=== PATIENT | male | born 1980 | race Hispanic/Latino ===

== ENCOUNTER 2016-10-27 10:22 | Emergency (ER) | payer SELFPAY ==
--- NOTE | 2016-10-27 10:53 | ERRECORD ---
[facility] EMERGENCY RECORD HPI TOOTHACHE (10:40 BPIC) CHIEF COMPLAINT: Patient presents for evaluation of toothache and swelling to lower right jaw. HISTORIAN: History provided by patient. LOCATION: Symptoms are localized, most severe to lower right. QUALITY: Pain is dull in nature. SEVERITY: Maximum severity of symptoms severe, Currently symptoms are severe. TIME COURSE: Gradual onset of symptoms, Sx have been much worse in the past few days. ASSOCIATED WITH: Associated with facial pain, No associated facial swelling, No associated fever, No associated trauma. EXACERBATED BY: Patient's condition exacerbated by chewing. RELIEVED BY: Patient's condition relieved by nothing. ROS (10:40 BPIC) CONSTITUTIONAL: Negative constitutional review of systems. EYES: Negative eye review of systems. ENT: Negative ears, nose, throat review of systems. CARDIOVASCULAR: Negative cardiovascular review of systems. RESPIRATORY: Negative respiratory review of systems. GI: Negative gastrointestinal review of systems. MUSCULOSKELETAL: Negative musculoskeletal review of systems. SKIN: Negative skin review of systems. PSYCHIATRIC: Negative psychiatric review of systems. NOTES: All other ROS is negative except as listed in HPI. PAST MEDICAL HISTORY MEDICAL HISTORY: Flu vaccine up to date, Tetanus immunization up to date, Dental HX, multiple broken teeth and abcesses. (10:28 MSPE) MALE SURGICAL HISTORY: Patient has no surgical history. (10:28 MSPE) PSYCHIATRIC HISTORY: No previous psychiatric history. (10:28 MSPE) SOCIAL HISTORY: Patient denies alcohol use, Patient denies drug use, Patient currently uses tobacco, smokes cigarettes, sts occasional cigarette. (10:28 MSPE) NOTES: I have reviewed and agree with the PMH/PSxH/FamHx/SocHx obtained by the nurse. (10:40 BPIC) KNOWN ALLERGIES NKDA (Unconfirmed) No Known Drug Allergies CURRENT MEDICATIONS (10:26 MSPE) None VITAL SIGNS (10:25 MSPE) &a-1R&a+25V*p+0X*b4832J*c202B*c15G*c2P*p-0X&a-25V&a+1R Name: Joe Flores : 1980 M35 MedRec: [id number] AcctNum: [id number] Prepared: TueOct 27, 2016 21:22 by Interface Page 1 of 2 pMD [facility] EMERGENCY RECORD VITAL SIGNS: BP: 146/86, Pulse: 85, Resp: 18, Temp: 97.3 (Oral), Pain: 10, O2 sat: 100 on Room Air, Time: 10/27/2016 10:25. PHYSICAL EXAM (10:40 BPIC) CONSTITUTIONAL: Vital signs reviewed, Patient afebrile, Pulse normal, Blood pressure normal, Respiratory rate normal, Patient appears non toxic, Patient appears pain free, Patient alert and oriented to person, place and time. HEAD: Head exam included findings of head atraumatic, normocephalic. EYES: Eye exam included findings of eyelids normal to inspection, Pupils equally round and reactive to light, Extraocular muscles intact. ENT: ENT exam normal, Nose exam normal, Pharynx exam normal, Uvula exam normal, Teeth with, dental caries, abscess. NECK: Neck exam included findings of normal range of motion, Trachea midline. RESPIRATORY CHEST: Respiratory exam included findings of no respiratory distress, Breath sounds clear, Chest exam included findings of chest movement symmetrical, Chest expansion equal. CARDIOVASCULAR: Cardiovascular exam included findings of heart rate regular rate and rhythm, Heart sounds normal. NEURO: Neuro exam findings include patient oriented to person, place and time, Speech normal. PSYCHIATRIC: Psychiatric exam included findings of patient oriented to person place and time, Normal affect. DOCTOR NOTES (10:40 BPIC) TEXT: Pt with dental dental abscess. I discussed the patient with Dr. Cardona who would like for the patient to be sent directly to his clinic. PROBLEM LIST No recorded problems DIAGNOSIS (10:40 BPIC) FINAL: PRIMARY: dental abscess. PRESCRIPTION No recorded prescriptions DISPOSITION PATIENT: Disposition Type: Discharge, Disposition: *Discharge Home, Condition: Good. (10:40 BPIC) Patient left the department. (10:46 MSPE) Jacobs: BPIC=MD Carline, Derrek MSPE=SMITH Goddard, Maria Elena &a-1R&a+25V*p+0X*q6036G*c202B*c15G*c2P*p-0X&a-25V&a+1R Name: Joe Flores : 1980 M35 MedRec: [id number] AcctNum: [id number] Prepared: TueOct 27, 2016 21:22 by Interface Page 2 of 2 pMD MTDD
--- NOTE | 2016-10-27 10:59 | PICIS ---
[facility] EMERGENCY RECORD TRIAGE (10:26 MSPE) TRIAGE NOTES: 3-4 day hx of dental pain; swelling to right lower jaw. (10:26 MSPE) PATIENT: NAME: Joe Flores, AGE: 35, GENDER: male, : Tue1980, TIME OF GREET: TueOct 27, 2016 10:22, PREFERRED LANGUAGE: Japanese, ETHNICITY: or , ECODE BILLING MAP: [facility], SSN: [id number], Zip Code: [address], KG WEIGHT: 68.04, PHONE: , , , PERSON ID: [id number], PCP: Thomas Graham /Jason. (10:26 MSPE) COMPLAINT: DENTAL PAIN. (10:26 MSPE) ADMISSION: URGENCY: 5 Fast Track, ADMISSION SOURCE: Home, TRANSPORT: CAR, BED: ER -02. (10:26 MSPE) SIRS SCORING: Heart Rate 55-109 (0), Temp range 96.8-101.1 (0), respiratory rate 12-24 (0), Mental Status altered: no (0), Total SIRS Score 0. (10:28 MSPE) TREATMENTS IN PROGRESS: Treatments given Prehospital: Tylenol 1000mg at approx 0800. (10:28 MSPE) PROVIDERS: TRIAGE NURSE: Maria Elena Goddard RN. (10:26 MSPE) VITAL SIGNS: BP 146/86, Pulse 85, Resp 18, Temp 97.3, (Oral), Pain 10, O2 Sat 100, on Room Air, Time 10/27/2016 10:25. (10:25 MSPE) PREVIOUS VISIT ALLERGIES: No Known Drug Allergies. (10:26 MSPE) No Known Drug Allergies. (10:28 MSPE) KNOWN ALLERGIES NKDA (Unconfirmed) No Known Drug Allergies CURRENT MEDICATIONS (10:26 MSPE) None VITAL SIGNS (10:25 MSPE) VITAL SIGNS: BP: 146/86, Pulse: 85, Resp: 18, Temp: 97.3 (Oral), Pain: 10, O2 sat: 100 on Room Air, Time: 10/27/2016 10:25. NURSING ASSESSMENT: DENTAL (10:31 MSPE) CONSTITUTIONAL: Patient arrives ambulatory, Gait steady, History obtained from patient, Patient cooperative, Patient alert, Oriented to person, place and time, Skin warm, Skin dry. PAIN: dull pain, miserable pain, to right lower back tooth (teeth), Onset of pain sts 3-4 days ago. DENTAL: no associated malocclusion of jaw, no associated bleeding, Associated with, swelling to the right jaw, Notes: pt sts followed up with dental clinic after last ER visit; sts they recommended all his teeth be pulled. NURSING PROCEDURE: DISCHARGE NOTE (10:44 MSPE) DISCHARGE: Patient discharged to physician's office, ambulating without assistance, driving self, Summary of Care printed/ provided, &a-1R&a+25V*p+0X*q7782R*c202B*c15G*c2P*p-0X&a-25V&a+1R Name: Joe Flores : 1980 M35 MedRec: [id number] AcctNum: [id number] Prepared: TueOct 27, 2016 21:29 by Interface Page 1 of 4 pMD [facility] EMERGENCY RECORD Discharge instructions given to patient, Above person(s) verbalized understanding of discharge instructions and follow-up care, Patient treated and evaluated by physician. BELONGINGS: Belongings remain with patient. NOTES: Notes: Pt instructed to go to Dr Cardona's office directly from ER with address and directions given to pt. Voiced understanding. HPI TOOTHACHE (10:40 BPIC) CHIEF COMPLAINT: Patient presents for evaluation of toothache and swelling to lower right jaw. HISTORIAN: History provided by patient. LOCATION: Symptoms are localized, most severe to lower right. QUALITY: Pain is dull in nature. SEVERITY: Maximum severity of symptoms severe, Currently symptoms are severe. TIME COURSE: Gradual onset of symptoms, Sx have been much worse in the past few days. ASSOCIATED WITH: Associated with facial pain, No associated facial swelling, No associated fever, No associated trauma. EXACERBATED BY: Patient's condition exacerbated by chewing. RELIEVED BY: Patient's condition relieved by nothing. ROS (10:40 BPIC) CONSTITUTIONAL: Negative constitutional review of systems. EYES: Negative eye review of systems. ENT: Negative ears, nose, throat review of systems. CARDIOVASCULAR: Negative cardiovascular review of systems. RESPIRATORY: Negative respiratory review of systems. GI: Negative gastrointestinal review of systems. MUSCULOSKELETAL: Negative musculoskeletal review of systems. SKIN: Negative skin review of systems. PSYCHIATRIC: Negative psychiatric review of systems. NOTES: All other ROS is negative except as listed in HPI. PAST MEDICAL HISTORY MEDICAL HISTORY: Flu vaccine up to date, Tetanus immunization up to date, Dental HX, multiple broken teeth and abcesses. (10:28 MSPE) MALE SURGICAL HISTORY: Patient has no surgical history. (10:28 MSPE) PSYCHIATRIC HISTORY: No previous psychiatric history. (10:28 MSPE) SOCIAL HISTORY: Patient denies alcohol use, Patient denies drug use, Patient currently uses tobacco, smokes cigarettes, sts occasional cigarette. (10:28 MSPE) NOTES: I have reviewed and agree with the PMH/PSxH/FamHx/SocHx obtained by the nurse. (10:40 BPIC) &a-1R&a+25V*p+0X*x7438O*c202B*c15G*c2P*p-0X&a-25V&a+1R Name: Joe Florse : 1980 M35 MedRec: [id number] AcctNum: [id number] Prepared: TueOct 27, 2016 21:29 by Interface Page 2 of 4 pMD [facility] EMERGENCY RECORD PHYSICAL EXAM (10:40 BPIC) CONSTITUTIONAL: Vital signs reviewed, Patient afebrile, Pulse normal, Blood pressure normal, Respiratory rate normal, Patient appears non toxic, Patient appears pain free, Patient alert and oriented to person, place and time. HEAD: Head exam included findings of head atraumatic, normocephalic. EYES: Eye exam included findings of eyelids normal to inspection, Pupils equally round and reactive to light, Extraocular muscles intact. ENT: ENT exam normal, Nose exam normal, Pharynx exam normal, Uvula exam normal, Teeth with, dental caries, abscess. NECK: Neck exam included findings of normal range of motion, Trachea midline. RESPIRATORY CHEST: Respiratory exam included findings of no respiratory distress, Breath sounds clear, Chest exam included findings of chest movement symmetrical, Chest expansion equal. CARDIOVASCULAR: Cardiovascular exam included findings of heart rate regular rate and rhythm, Heart sounds normal. NEURO: Neuro exam findings include patient oriented to person, place and time, Speech normal. PSYCHIATRIC: Psychiatric exam included findings of patient oriented to person place and time, Normal affect. EVENTS TRANSFER: Triage to Emergency Emergency Room -02. (10:26 MSPE) Removed from Emergency Emergency Room -02. (10:46 MSPE) DOCTOR NOTES (10:40 BPIC) TEXT: Pt with dental dental abscess. I discussed the patient with Dr. Cardona who would like for the patient to be sent directly to his clinic. PROBLEM LIST No recorded problems DIAGNOSIS (10:40 BPIC) FINAL: PRIMARY: dental abscess. DISPOSITION PATIENT: Disposition Type: Discharge, Disposition: *Discharge Home, Condition: Good. (10:40 BPIC) Patient left the department. (10:46 MSPE) INSTRUCTION (10:40 BPIC) DISCHARGE: DENTAL ABSCESS. FOLLOWUP: [facility], /[facility], [address] [place] [id number], , MD Dulce, [place], [employer] baggage [employer]ter, [address] [place] [address] , &a-1R&a+25V*p+0X*l2405V*c202B*c15G*c2P*p-0X&a-25V&a+1R Name: Joe Flores : 1980 M35 MedRec: [id number] AcctNum: [id number] Prepared: TueOct 27, 2016 21:29 by Interface Page 3 of 4 pMD [facility] EMERGENCY RECORD [phone]. SPECIAL: Thank you for choosing [facility] Emergency Department for your care today! Please go directly to the Oral Surgeon's clinic. Return to the emergency department with any other worsening or emergent symptoms. God bless you!. PRESCRIPTION No recorded prescriptions IMAGING (10:46 MSPE) *DISCHARGE INSTRUCTIONS RECEIPT: Image captured from scanner. *SUPPLY CHARGE SHEET: Image captured from scanner. ADMIN (21:16 BPIC) DIGITAL SIGNATURE: MD Crowley Bryan. Jacobs: BPIC=MD Crowley Bryan MSPE=SMITH Goddard, Maria Elena &a-1R&a+25V*p+0X*[id number]*c202B*c15G*c2P*p-0X&a-25V&a+1R Name: Joe Flores : 1980 M35 MedRec: [id number] AcctNum: [id number] Prepared: César Oct 27, 2016 21:29 by Interface Page 4 of 4 pMD MTDD
== END 2016-10-27 10:44 | disposition home or self-care (01) ==
LOC: NAV ERS 10:22
DX: K04.7 Periapical abscess without sinus (principal); Z72.0 Tobacco use
CPT/HCPCS: 99282

== ENCOUNTER 2017-07-18 07:38 | Emergency (ER) | payer SELFPAY | END 2017-07-18 07:58 | disposition home or self-care (01) | LOC: NAV ERS 07:38 | DX: K02.9 Dental caries, unspecified (principal); F17.210 Nicotine dependence, cigarettes, uncomplicated | CPT/HCPCS: 99282 ==

== ENCOUNTER 2017-12-25 09:53 | Emergency (ER) | payer SELFPAY ==
[2017-12-25] MEDS ORDERED: Ibuprofen 800 MG TAB ONE (10:41)
== END 2017-12-25 10:47 | disposition home or self-care (01) ==
LOC: NAV ERS 09:53
DX: K03.81 Cracked tooth (principal); Z87.891 Personal history of nicotine dependence
CPT/HCPCS: 99282

== ENCOUNTER 2018-07-10 07:20 | Emergency (ER) | payer SELFPAY | END 2018-07-10 08:33 | disposition home or self-care (01) | LOC: NAV ERS 07:20 | DX: K03.81 Cracked tooth (principal); Z87.891 Personal history of nicotine dependence | CPT/HCPCS: 99282 ==

== ENCOUNTER 2019-01-27 10:59 | Emergency (ER) | payer BC, SELFPAY | END 2019-01-27 11:45 | disposition home or self-care (01) | LOC: NAV ERS 10:59 | DX: K02.9 Dental caries, unspecified (principal); K00.7 Teething syndrome; Z87.891 Personal history of nicotine dependence | CPT/HCPCS: 99281 ==

== ENCOUNTER 2023-01-01 13:49 | Emergency (ER) | payer SELFPAY | END 2023-01-01 14:25 | disposition home or self-care (01) | LOC: NAV ERS 13:49 | DX: K04.4 Acute apical periodontitis of pulpal origin (principal); K02.9 Dental caries, unspecified | CPT/HCPCS: 99282 ==

== ENCOUNTER 2024-04-27 18:11 | Emergency (ER) | payer SELFPAY ==
[2024-04-27 18:44] LABS: #Eosinphils 0.1 thou/uL (0.0-0.7); #Lymphocytes 2.5 thou/uL (1.20-3.40); #Monocytes 0.4 thou/uL (0.11-0.59); #Neutrophils 2.3 thou/uL (1.40-6.50); %Basophils 0.8 % (0.0-1.0); %Eosinophils 1.5 % (0.0-10.0); %Lymphocytes 46.5 % (21.0-51.0); %Monocytes 7.3 % (0.0-10.0); %Neutrophils 43.8 % (42.0-75.0); Hematocrit 44.2 % (42.0-52.0); Hemoglobin 13.3 g/dL (14.0-18.0); Mean Corpuscular HGB CONC 30.2 g/dL (32.0-36.0); Mean Corpuscular Hemoglobin 26.6 pg (27.0-31.0); Mean Platelet Volume 10.1 fL (7.4-10.4); Platelet Count 168 10x3/uL (130-400); RBC Distribution Width 13.2 % (11.5-14.5); Red Blood Cell (RBC) Count 5.02 mill/uL (4.70-6.10); White Blood Cell (WBC) Count 5.3 10x3/uL (4.8-10.8)
[2024-04-27] MEDS ORDERED: levETIRAcetam 500 MG TAB ONE (18:47)
[2024-04-27] MEDS ORDERED: Sodium Chloride 0.9% 1,000 ML ONE (18:47)
[2024-04-27 18:58] LABS: ALT (SGPT) 14 U/L (8-55); AST (SGOT) 16 U/L (5-34); Albumin 3.7 g/dL (3.5-5.0); Alkaline Phosphatase 60 U/L (40-110); Anion Gap 18 mmol/L (10-20); BUN (Urea Nitrogen) 8 mg/dL (8.9-20.6); Bilirubin, Total 0.2 mg/dL (0.2-1.2); Calc. Creatinine Clearance 0 mL/min (70-130); Calcium 8.3 mg/dL (7.8-10.44); Carbon Dioxide 17 mmol/L (22-29); Chloride 106 mmol/L (98-107); Estimated GFR 95; Globulin 3.4 g/dL (2.4-3.5); Glucose 118 mg/dL (70-105); Potassium 3.4 mmol/L (3.5-5.1); Protein, Total 7.1 g/dL (6.0-8.3); Sodium 138 mmol/L (136-145)
[2024-04-27] MEDS ORDERED: Acetaminophen 325 MG TAB ONE (19:39)
== END 2024-04-27 20:16 | disposition home or self-care (01) ==
LOC: NAV ERS 18:11
DX: G40.909 Epilepsy, unspecified, not intractable, without status epilepticus (principal); Z91.148 Patient's other noncompliance with medication regimen for other reason; Z79.899 Other long term (current) drug therapy
CPT/HCPCS: 80053; 85025; 99284; J7050

== ENCOUNTER 2024-08-24 21:12 | Emergency (ER) | payer SELFPAY ==
[2024-08-24] MEDS ORDERED: Lidocaine 1% w/Epinephrine 1:100K 20 ML VIAL ONE (22:11)
[2024-08-24] MEDS ORDERED: Bacitracin 1 PK ONE (22:11)
[2024-08-24] MEDS ORDERED: Boostrix 0.5 ML (Tdap) VIAL (>/=7 yrs of age) ONE (22:12)
== END 2024-08-24 23:28 | disposition home or self-care (01) ==
LOC: NAV ERS 21:12
DX: S01.01XA Laceration without foreign body of scalp, initial encounter (principal); S06.0X9A Concussion with loss of consciousness of unspecified duration, initial encounter; F17.200 Nicotine dependence, unspecified, uncomplicated; Z23 Encounter for immunization; J34.89 Other specified disorders of nose and nasal sinuses; W11.XXXA Fall on and from ladder, initial encounter
CPT/HCPCS: 12002; 70450; 72125; 90471; 90715

== ENCOUNTER 2024-09-06 08:09 | Emergency (ER) | payer SELFPAY ==
[2024-09-06] MEDS ORDERED: Cyclobenzaprine 10 MG TAB ONE (08:25)
== END 2024-09-06 09:21 | disposition home or self-care (01) ==
LOC: NAV ERS 08:09
DX: S20.229A Contusion of unspecified back wall of thorax, initial encounter (principal); F17.210 Nicotine dependence, cigarettes, uncomplicated; Z86.69 Personal history of other diseases of the nervous system and sense organs; Z79.899 Other long term (current) drug therapy; W10.9XXA Fall (on) (from) unspecified stairs and steps, initial encounter
CPT/HCPCS: 72128